=== PATIENT | male | born 1955 | race African-American/Black ===

== ENCOUNTER 2020-06-26 11:36 | Inpatient (IN) | payer OTHER ==
--- NOTE | 2020-06-26 11:44 | BHS.RME ---
Substance Use & Tx History - Substance Use History Alcohol Substance amount: 2 pints vodka + beers Frequency of use: Daily Substance route: Oral Date of Last Use: 06/26/20 (started age 19) Cocaine-Crack Substance amount: $10-20 Frequency of use: Once a month Substance route: Smoking Date of Last Use: 06/25/20 (started age 46) Nicotine Substance amount: 10 ciggs Frequency of use: Daily Substance route: Smoking (t) Date of Last Use: 06/26/20 (started age 40) Physical/Psych/Mental Status - Behavior General Behavior: Increased activity (restlessness, agitation) Eye Contact: Normal - Cooperativeness Cooperativeness: Cooperative - Thinking Thought Processes: Tight, Logical, Goal Directed - Physical Health Problems Is patient presently having any pain?: No Does patient presently have any injuries (include location): No Does patient currently have a fever: No Is patient : No CIWA Nausea/Vomitin Muscle Tremors: 3 Anxiety: 4-Mod. Anxious/Guarded Agitation: 4-Moderately Restless Paroxysmal Sweats: 1-Minimal Palms Moist Orientation: 1-Uncertain about Date Tacttile Disturbances: 0-None Auditory Disturbances: 0-None Visual Disturbances: 0-None Headache: 0-None Present CIWA-Ar Total Score: 16
[2020-06-26 12:45] VITALS: BMI 27.3
--- NOTE | 2020-06-26 13:17 | HP ---
CIWA Score Nausea/Vomitin Muscle Tremors: 3 Anxiety: 4-Mod. Anxious/Guarded Agitation: 4-Moderately Restless Paroxysmal Sweats: 1-Minimal Palms Moist Orientation: 1-Uncertain about Date Tacttile Disturbances: 0-None Auditory Disturbances: 0-None Visual Disturbances: 0-None Headache: 0-None Present CIWA-Ar Total Score: 16 - Admission Criteria OASAS Guidelines: Admission for Medically Managed Detox: Requires at least one of the followin. CIWA greater than 12 2. Seizures within the past 24 hours 3. Delirium tremens within the past 24 hours 4. Hallucinations within the past 24 hours 5. Acute intervention needed for co occurring medical disorder 6. Acute intervention needed for co occurring psychiatric disorder 7. Severe withdrawal that cannot be handled at a lower level of care (continued vomiting, continued diarrhea, abnormal vital signs) requiring intravenous medication and/or fluids 8. Admitting History and Physical - Admission Chief Complaint: Mr. Levy is a 65 yo man who presents to [facility] requesting detox for alcohol use disorder. History of Present Illness: Mr. Levy is a 65 yo man who presents to [facility] requesting detox for alcohol use disorder. This is his first visit to [facility]. PMH:Blepharospasm, positive PPD tx with INH in the past, HTN PSH: right ankle replacement, left ankle fusion Psych: PTSD SOC: lives in [place] Legal: none Substance Use History Alcohol Substance amount: 2 pints vodka + beers Frequency of use: Daily Substance route: Oral Date of Last Use: 06/26/20 (started age 19) No seizure Blackouts, last was last week Admits to [employer] Cocaine-Crack Substance amount: $10-20 Frequency of use: Once a month Substance route: Smoking Date of Last Use: 06/25/20 (started age 46) Nicotine Substance amount: 10 ciggs Frequency of use: Daily Substance route: Smoking (t) Date of Last Use: 06/26/20 (started age 40) History Source: Patient Limitations to Obtaining History: No Limitations - Smoking History Smoking history: Current every day smoker Have you smoked in the past 12 months: Yes Aproximately how many cigarettes per day: 10 Admission ROS S - HPI Allergies/Adverse Reactions: Allergies Allergy/AdvReac Type Severity Reaction Status Date / Time No Known Allergies Allergy Verified 06/26/20 12:45 Exam Limitations: No Limitations - Ebola screening Have you traveled outside of the country in the last 21 days: No Have you been sick,other than usual withdrawal symptoms: No Do you have a fever: No - Review of Systems Constitutional: No Symptoms Reported EENT: reports: Other (blepharospasm, [facility]) Respiratory: reports: No Symptoms reported Cardiac: reports: No Symptoms Reported GI: reports: No Symptoms Reported : reports: No Symptoms Reported Musculoskeletal: reports: Joint Stiffness (bilateral ankles) Integumentary: reports: No Symptoms Reported Neuro: reports: No Symptoms reported Endocrine: reports: No Symptoms Reported Hematology: reports: No Symptoms Reported Psychiatric: reports: No Sypmtoms Reported Patient History - Patient Medical History Hx Asthma: No Hx Chronic Obstructive Pulmonary Disease (COPD): No Hx Cardiac Disorders: No Hx Hypertension: Yes Hx Seizures: No Hx Diabetes: No Hx Gastrointestinal Disorders: No Hx Genitourinary Disorders: No Hx Sexually Transmitted Disorders: No Hx Renal Disease (ESRD): No Hx Depression: No Hx Suicide Attempt: No Hx Schizophrenia: No - Patient Surgical History Past Surgical History: No Hx Neurologic Surgery: No Hx Cataract Extraction: No Hx Cardiac Surgery: No Hx Lung Surgery: No Hx Breast Surgery: No Hx Breast Biopsy: No Hx Abdominal Surgery: No Hx Appendectomy: No Hx Cholecystectomy: No Hx Genitourinary Surgery: No Hx Section: No Hx Orthopedic Surgery: No Other Surgical History: left ankle fusion/ right ankle replacement - PPD History Results: neg - Reproductive History Patient : (n/a) - Smoking Cessation Smoking history: Current every day smoker Have you smoked in the past 12 months: Yes Aproximately how many cigarettes per day: 10 Cigars Per Day: 0 Hx Chewing Tobacco Use: No Initiated information on smoking cessation: Yes 'Breaking Loose' booklet given: 06/26/20 Admission Physical Exam BHS - Vital Signs Vital Signs: Vital Signs - 24 hr 06/26/20 12:43 Temperature 97.6 F Pulse Rate 89 Respiratory 20 Rate Blood Pressure 107/64 - Physical General Appearance: Yes: No Apparent Distress, Nourished, Irritable HEENTM: Yes: EOMI, Hearing grossly Normal, Normocephalic, Normal Voice, Other (bilateral blepharospasm) Respiratory: Yes: Lungs Clear, No Respiratory Distress, No Accessory Muscle Use Neck: Yes: Within Normal Limits, Supple Breast: Yes: Breast Exam Deferred Cardiology: Yes: Regular Rhythm, Regular Rate Abdominal: Yes: Normal Bowel Sounds, Non Tender, Soft, Protuberent Genitourinary: Yes: Other (deferred) Back: Yes: Normal Inspection Musculoskeletal: Yes: Gait Steady, Other (slightly stiff legged, right ankle surgical scar midline, minimal joint motion bilateral ankle) Neurological: Yes: Within Normal Limits Integumentary: Yes: Within Normal Limits - Diagnostic (1) Alcohol abuse with withdrawal, uncomplicated Current Visit: Yes Status: Acute (2) Cocaine dependence Current Visit: Yes Status: Acute Qualifiers: Substance use status: uncomplicated Qualified Code(s): F14.20 - Cocaine dependence, uncomplicated (3) Nicotine dependence Current Visit: Yes Status: Acute Qualifiers: Nicotine product type: cigarettes Substance use status: uncomplicated Qualified Code(s): F17.210 - Nicotine dependence, cigarettes, uncomplicated (4) Blepharospasm of both eyes Current Visit: Yes Status: Chronic (5) Positive PPD, treated Current Visit: No Status: Chronic (6) HTN (hypertension) Current Visit: Yes Status: Chronic (7) History of ankle joint replacement Current Visit: Yes Status: Chronic Qualifiers: Laterality: right Qualified Code(s): Z96.661 - Presence of right artificial ankle joint (8) H/O ankle fusion Current Visit: Yes Status: Chronic (9) PTSD (post-traumatic stress disorder) Current Visit: Yes Status: Chronic Cleared for Admission S - Detox or Rehab [facility] Level of Care: Medically Managed Detox Regimen/Protocol: Librium Breathalyzer - Breathalyzer Breathalyzer: 0.142 Urine Drug Screen - Test Device Lot number: [id number] Expiration date: 12/27/21 - Control Is test valid?: Yes - Results Drug screen NEGATIVE: No Urine drug screen results: [facility]-Cocaine Inpatient Rehab Admission - Rehab Decision to Admit Inpatient rehab admission?: No
[2020-06-26] MEDS ORDERED: ONDANSETRON *ODT* 4 MG TABLET SL PRN (13:22)
[2020-06-26] MEDS ORDERED: METHOCARBAMOL 500 MG TABLET PO PRN (13:22)
[2020-06-26] MEDS ORDERED: MAGNESIUM CITRATE 300 ML BOTTLE PO PRN (13:22)
[2020-06-26] MEDS ORDERED: MAGNESIUM HYDROX 2400MG/30ML ORAL SUSPENSION 30 ML CUP PO PRN (13:22)
[2020-06-26] MEDS ORDERED: BISMUTH SUBSALICYLATE 262 MG/15 ML BTL PO PRN (13:22)
[2020-06-26] MEDS ORDERED: ACETAMINOPHEN 325 MG TABLET (FP) PO PRN ×2 (13:22)
[2020-06-26] MEDS ORDERED: NICOTINE POLACRILEX 2 MG GUM BUC PRN (13:22)
[2020-06-26] MEDS ORDERED: IBUPROFEN 400 MG TABLET (FP) PO PRN (13:22)
[2020-06-26] MEDS ORDERED: MAG HYDROX/AL HYDROX/SIMETH 30 ML UNIT-DOSE CUP PO PRN (13:22)
[2020-06-26] MEDS ORDERED: chlordiazePOXIDE HCL 25 MG CAPSULE PO PRN (13:22)
[2020-06-26] MEDS ORDERED: MENTHOL/PHENOL 1 EACH UD MM PRN (13:22)
[2020-06-26] MEDS ORDERED: NICOTINE 14 MG/24 HOURS TOPICAL PATCH TD SCH (13:30)
[2020-06-26] MEDS ORDERED: LOSARTAN POTASSIUM 25 MG TABLET PO SCH (13:30)
[2020-06-26] MEDS: hydrOXYzine PAMOATE 25 MG CAPSULE (FP) PO SCH ×3 (14:03→22:15)
--- NOTE | 2020-06-26 14:46 | EKG ---
Test Reason : Blood Pressure : / mmHG Vent. Rate : 081 BPM Atrial Rate : 081 BPM P-R Int : 174 ms QRS Dur : 100 ms QT Int : 398 ms P-R-T Axes : 067 -14 054 degrees QTc Int : 462 ms NORMAL SINUS RHYTHM NORMAL ECG NO PREVIOUS ECGS AVAILABLE Confirmed by MD MAIRA, GUSTAVO ([id number]) on 06/26/2020 2:46:01 PM Referred By: Confirmed By:GUSTAVO RAO MD
[2020-06-26 14:47] LABS: HEMATOCRIT 39.6 % (35.4-49); HEMOGLOBIN 13.5 GM/dL (11.7-16.9); MCH 30.8 pg (25.7-33.7); MCHC 34.2 g/dl (32.0-35.9); MEAN CELL VOLUME 90.1 fl (80-96); MEAN PLT VOLUME 8.7 fl (7.5-11.1); PLATELET COUNT 218 K/MM3 (134-434); RDW 15.1 % (11.9-15.9); WHITE BLOOD COUNT 9.9 K/mm3 (4.0-10.0)
[2020-06-26 15:40] LABS: ALBUMIN 3.9 g/dl (3.4-5.0); BILIRUBIN,TOTAL 0.5 mg/dL (0.2-1); BLOOD UREA NITROGEN 14.6 mg/dL (7-18); CALCIUM 8.9 mg/dL (8.5-10.1); CREATININE 0.9 mg/dL (0.55-1.3); POTASSIUM 3.5 mmol/L (3.5-5.1)
[2020-06-26] MEDS: chlordiazePOXIDE HCL 25 MG CAPSULE PO SCH ×2 (17:59→22:15)
[2020-06-26] MEDS ORDERED: MELATONIN 5 MG TABLETS PO SCH (22:00)
[2020-06-26] MEDS ORDERED: THIAMINE HCL 100 MG TABLET (FP) PO SCH (22:00)
[2020-06-27] MEDS: hydrOXYzine PAMOATE 25 MG CAPSULE (FP) PO SCH (08:15)
[2020-06-27] MEDS: chlordiazePOXIDE HCL 25 MG CAPSULE PO SCH (08:15)
--- NOTE | 2020-06-27 09:05 | PN ---
S CIWA - CIWA Score Nausea/Vomitin-Mild Nausea/No Vomiting Muscle Tremors: 2 Anxiety: 2 Agitation: 2 Paroxysmal Sweats: 1-Minimal Palms Moist Orientation: 0-Oriented Tacttile Disturbances: 1-Very Mild Itch/Numbness Auditory Disturbances: 0-None Visual Disturbances: 0-None Headache: 2-Mild CIWA-Ar Total Score: 11 S Progress Note (SOAP) Subjective: alert,irritable,anxious,interrupted sleep,pain in the body,tremor Objective: 06/27/20 13:40 Vital Signs Temperature 97.3 F L 06/27/20 09:00 Pulse Rate 76 06/27/20 09:00 Respiratory Rate 18 06/27/20 09:00 Blood Pressure 106/72 06/27/20 09:00 O2 Sat by Pulse Oximetry (%) 98 06/27/20 06:29 06/27/20 13:40 Laboratory Last Values WBC 9.9 K/mm3 (4.0-10.0) 06/26/20 13:30 RBC 4.40 M/mm3 (4.00-5.60) 06/26/20 13:30 Hgb 13.5 GM/dL (11.7-16.9) 06/26/20 13:30 Hct 39.6 % (35.4-49) 06/26/20 13:30 MCV 90.1 fl (80-96) 06/26/20 13:30 MCH 30.8 pg (25.7-33.7) 06/26/20 13:30 MCHC 34.2 g/dl (32.0-35.9) 06/26/20 13:30 RDW 15.1 % (11.9-15.9) 06/26/20 13:30 Plt Count 218 K/MM3 (134-434) 06/26/20 13:30 MPV 8.7 fl (7.5-11.1) 06/26/20 13:30 Sodium 142 mmol/L (136-145) 06/26/20 13:30 Potassium 3.5 mmol/L (3.5-5.1) 06/26/20 13:30 Chloride 109 mmol/L (98-107) H 06/26/20 13:30 Carbon Dioxide 24 mmol/L (21-32) 06/26/20 13:30 Anion Gap 9 MMOL/L (8-16) 06/26/20 13:30 BUN 14.6 mg/dL (7-18) 06/26/20 13:30 Creatinine 0.9 mg/dL (0.55-1.3) 06/26/20 13:30 Est GFR (CKD-EPI)AfAm 104.24 06/26/20 13:30 Est GFR (CKD-EPI)NonAf 89.94 06/26/20 13:30 Random Glucose 103 mg/dL (74-106) 06/26/20 13:30 Calcium 8.9 mg/dL (8.5-10.1) 06/26/20 13:30 Total Bilirubin 0.5 mg/dL (0.2-1) 06/26/20 13:30 AST 116 U/L (15-37) H 06/26/20 13:30 ALT 47 U/L (13-61) 06/26/20 13:30 Alkaline Phosphatase 55 U/L (45-117) 06/26/20 13:30 Total Protein 8.0 g/dl (6.4-8.2) 06/26/20 13:30 Albumin 3.9 g/dl (3.4-5.0) 06/26/20 13:30 Syphilis Serology Reactive (NONREACTIVE) A* 06/26/20 13:30 RPR Titer Reactive 1:1 (NONREACTIVE) H 06/26/20 13:30 COVID-19 (BRENDA) Not detected (Not Detected) 06/26/20 14:00
--- NOTE | 2020-06-27 09:07 | DS ---
[facility] Detox Discharge Summary Admission Date: 06/26/20 - Physical Exam Results Vital Signs: Vital Signs Temperature 97.9 F 06/27/20 06:29 Pulse Rate 69 06/27/20 06:29 Respiratory Rate 16 06/27/20 06:29 Blood Pressure 113/69 06/27/20 06:29 O2 Sat by Pulse Oximetry (%) 98 06/27/20 06:29 - Medication Discharge Medications: Ambulatory Orders Losartan Potassium [Cozaar -] 25 mg PO DAILY 06/26/20
[2020-06-27 09:38] VITALS: BP 106/72; PULSE 76; TEMP 97.3
[2020-06-27] MEDS ORDERED: PRENATAL VITAMINS W/ FOLIC ACID TABLET (FP) PO SCH (10:00)
--- NOTE | 2020-06-27 13:48 | PN ---
S CIWA - CIWA Score Nausea/Vomitin-Mild Nausea/No Vomiting Muscle Tremors: 2 Anxiety: 2 Agitation: 2 Paroxysmal Sweats: 1-Minimal Palms Moist Orientation: 0-Oriented Tacttile Disturbances: 1-Very Mild Itch/Numbness Auditory Disturbances: 0-None Visual Disturbances: 0-None Headache: 2-Mild CIWA-Ar Total Score: 11 BHS Progress Note (SOAP) Subjective: alert,irritable,anxious,interrupted sleep Objective: 06/27/20 13:47 Vital Signs Temperature 97.3 F L 06/27/20 09:00 Pulse Rate 76 06/27/20 09:00 Respiratory Rate 18 06/27/20 09:00 Blood Pressure 106/72 06/27/20 09:00 O2 Sat by Pulse Oximetry (%) 98 06/27/20 06:29 Assessment: 06/27/20 13:47 withdrawal symptom Plan: continue detox librium regimen
--- NOTE | 2020-06-27 13:50 | DS ---
[facility] Detox Discharge Summary Admission Date: 06/26/20 Discharge Date: 06/27/20 - History Present History: Alcohol Dependence, Cocaine Dependence Additional Comments: alert,oriented x 3 ambulation on the unit lung clear on auscultation bilaterally abdomen soft,no distension,no pain patient did not want to complete treatment,all attempts to convince patient to stay with no avail, high risk of relapsing explained,patient understood,singed release against medical advise,the risk of leaving the hospital including seizure,permanent disability and explained,patient understood stated will go to [facility] left the unit in stable condition Pertinent Past History: hypertension positive ppd history of reconstructive surgery of right ankle fusion ptsd - Physical Exam Results Vital Signs: Vital Signs Temperature 97.3 F L 06/27/20 09:00 Pulse Rate 76 06/27/20 09:00 Respiratory Rate 18 06/27/20 09:00 Blood Pressure 106/72 06/27/20 09:00 O2 Sat by Pulse Oximetry (%) 98 06/27/20 06:29 Pertinent Admission Physical Exam Findings: withdrawal signs and symptom Vital Signs Temperature 97.3 F L 06/27/20 09:00 Pulse Rate 76 06/27/20 09:00 Respiratory Rate 18 06/27/20 09:00 Blood Pressure 106/72 06/27/20 09:00 O2 Sat by Pulse Oximetry (%) 98 06/27/20 06:29 - Medication Discharge Medications: Ambulatory Orders Losartan Potassium [Cozaar -] 25 mg PO DAILY 06/26/20 - Diagnosis (1) Alcohol abuse with withdrawal, uncomplicated Status: Acute (2) Cocaine dependence Status: Acute Qualifiers: Substance use status: uncomplicated Qualified Code(s): F14.20 - Cocaine dependence, uncomplicated (3) Nicotine dependence Status: Acute Qualifiers: Nicotine product type: cigarettes Substance use status: uncomplicated Qualified Code(s): F17.210 - Nicotine dependence, cigarettes, uncomplicated (4) H/O ankle fusion Status: Chronic (5) HTN (hypertension) Status: Chronic (6) PTSD (post-traumatic stress disorder) Status: Chronic (7) Positive PPD, treated Status: Chronic - AMA Did Patient Leave Against Medical Advice: Yes
[2020-06-28] MEDS ORDERED: chlordiazePOXIDE HCL 25 MG CAPSULE PO SCH (05:00)
[2020-06-29] MEDS ORDERED: chlordiazePOXIDE HCL 10 MG CAPSULE PO PRN
[2020-06-29] MEDS ORDERED: chlordiazePOXIDE HCL 10 MG CAPSULE PO SCH (05:00)
[2020-06-30] MEDS ORDERED: chlordiazePOXIDE HCL 10 MG CAPSULE PO SCH (05:00)
[2020-07-01] MEDS ORDERED: chlordiazePOXIDE HCL 10 MG CAPSULE PO ONE (05:00)
== END 2020-06-27 09:53 | disposition left against medical advice (07) | DRG 894 ==
LOC: YASAS 11:36 → Y3N 13:28
PROVIDERS: ADMIT Allergy & Immunology; ATTEND Allergy & Immunology
PROC: HZ2ZZZZ Detoxification Services for Substance Abuse Treatment (ICD-10-PCS; principal; 2020-06-26)
DX: F10.230 Alcohol dependence with withdrawal, uncomplicated (principal); F14.20 Cocaine dependence, uncomplicated; F17.210 Nicotine dependence, cigarettes, uncomplicated; F43.10 Post-traumatic stress disorder, unspecified; I10 Essential (primary) hypertension; R76.11 Nonspecific reaction to tuberculin skin test without active tuberculosis; Z96.661 Presence of right artificial ankle joint; Z98.1 Arthrodesis status; Z98.890 Other specified postprocedural states
CPT/HCPCS: 36415; 80053; 85027; 86593; 86780; 93005; 93010; C9803; U0003